=== PATIENT | female | born 2005 | race Caucasian/White ===

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

== ENCOUNTER 2024-09-20 09:36 | Emergency (ER) | payer BC, OTHER ==
[~2024-09-20] VITALS: Ht 165.1 cm; Wt 78.0 kg
[2024-09-20] MEDS ORDERED: CLARITIN10 M2 (09:57)
[2024-09-20] MEDS ORDERED: VENTOLIN HFA18 GM (09:57)
[2024-09-20 10:03] LABS: BILIRUBIN, URINE NEGATIVE (negative); BLOOD/HGB, URINE LARGE (Negative); KETONE, URINE NEGATIVE (Negative); LEUK ESTERASE, URINE NEGATIVE (negative); NITRITE, URINE NEGATIVE (negative)
[2024-09-20 10:24] LABS: BACTERIA, URINE RARE /hpf (negative); CASTS, URINE NONE SEEN \\lpf; COLLECTION TYPE, URINE CLEAN CATCH; CRYSTALS, URINE NONE SEEN (0-1+); EPITHELIAL CELLS, URINE SQUAMOUS 1+ /lpf (0-1+); RED BLOOD CELLS, URINE >50 /hpf (0-5); REFLEX CULTURE, URINE No (No)
[2024-09-20] MEDS ORDERED: ACETAMINOPHEN 325 MG TAB PO ONE (10:45)
[2024-09-20 11:13] LABS: BASOPHILS 0.3 % (0-2); EOSINOPHILS 0.6 % (0-6); HEMATOCRIT 38.2 % (35.0-50.0); LYMPHOCYTES 15.6 % (24-44); MCH 28.3 (27-36); MCHC 33.9 g/dl (30-36); MCV 83.4 fl (81-99); MONOCYTES 7.5 % (0-12); PLATELET COUNT 207 K/uL (140-440); RBC 4.58 M/ul (4.3-5.7); RDW 14.1 (10.5-15.0)
[2024-09-20 11:35] LABS: ALBUMIN/GLOBULIN RATIO 1.05 (1.1-2.4); ANION GAP 15.7 (7-21); BILIRUBIN, TOTAL 0.4 ng/dL (0.2-1.0); BUN/CREATININE RATIO 9.58 (6.0-28.6); CALCIUM 9.2 mg/dL (8.5-10.1); CREATININE, SERUM 0.73 mg/dL (0.55-1.02); POTASSIUM 3.7 mmol/L (3.5-5.1); PROTEIN, TOTAL 7.8 g/dL (6.4-8.2)
[2024-09-20 11:40] LABS: ABO O; RH NEGATIVE
[2024-09-20] MEDS ORDERED: RHO(D) IMMUNE GLOBULIN 1,500 UNIT/2 ML ML IM ONE (12:45)
[2024-09-20 13:30] LABS: SOURCE, WET MOUNT VAGINAL
[2024-09-20 13:31] LABS: BACTERIA, WET MOUNT NEGATIVE (NEGATIVE); CLUE CELLS, WET MOUNT NEGATIVE (NEGATIVE); EPITHELIAL CELLS, WET MOUNT 1+ (NEGATIVE); RBC, WET MOUNT 3+ (NEGATIVE); TRICHOMONAS, WET MOUNT NEGATIVE (NEGATIVE); WBC, WET MOUNT NEGATIVE (NEGATIVE); YEAST, WET MOUNT NEGATIVE (NEGATIVE)
[2024-09-20 14:45] VITALS: BP 96/70
[2024-09-20 14:53] LABS: N. GONORRRHOEAE BY PCR NOT DETECTED (NOT DETECT)
== END 2024-09-20 14:48 | disposition home or self-care (01) ==
LOC: ED 09:36
PROVIDERS: Emergency Medicine
DX: O20.9 Hemorrhage in early pregnancy, unspecified (principal); O99.511 Diseases of the respiratory system complicating pregnancy, first trimester; J45.909 Unspecified asthma, uncomplicated; Z3A.01 Less than 8 weeks gestation of pregnancy
CPT/HCPCS: 36415; 76801; 76817; 80053; 81001; 84702; 85025; 86900; 86901; 87210; 87491; 96372; 99284-25; A9270; J2790